=== PATIENT | female | born 1970 | race Caucasian/White ===

== ENCOUNTER 2016-08-28 17:39 | Emergency (ER) | payer OTHER ==
[~2016-08-28] VITALS: Ht 154.9 cm; Wt 68.0 kg
[~2016-08-28 17:39] MED LIST: DIAZ10 PO; FURO1TAB60 PO; LEVO.05 PO
[2016-08-28 17:40] VITALS: BP 135/77; PULSE 70; RESP 16; TEMP 98; O2SAT 97
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
[2016-08-28 19:40] LABS: AUTOMATED NEUTROPHIL # 5.4 TH/MM3 (1.8-7.7); BASOPHIL # 0.1 TH/MM3 (0-0.2); BASOPHIL % 1.1 % (0.0-2.0); EOSINOPHIL # 0.2 TH/MM3 (0-0.4); EOSINOPHIL % 2.2 % (0.0-4.0); HEMO FLAGS DIFF FINAL; LYMPH % 39.3 % (9.0-44.0); LYMPHOCYTE # 4.1 TH/MM3 (1.0-4.8); MEAN CELL VOLUME 93.2 FL (80.0-100.0); MEAN CORPUSCULAR HGB CONC 34.4 % (32.0-36.0); MONO % 5.4 % (0.0-8.0); PLATELET COUNT 378 TH/MM3 (150-450); RED CELL DISTRIBUTION WIDTH 12.2 % (11.6-17.2); WHITE BLOOD COUNT 10.4 TH/MM3 (4.0-11.0)
[2016-08-28 19:42] LABS: BLOOD, URINE NEG (NEG); COMMENT (UR) CULT NOT INDICATED; CULTURE IF INDICATED CULT NOT INDICATED; GLUCOSE,URINE NEG (NEG); KETONE, URINE NEG (NEG); NITRITE,URINE NEG (NEG); SQUAMOUS EPITHELIAL CELL URINE 3 /hpf (0-5); URINE COLOR COLORLESS (YELLW/STRAW)
[2016-08-28 19:51] LABS: APTT (PATIENT) 26.3 SEC (24.3-30.1); INTERNATIONAL NORMALIZED RATIO 0.9 RATIO; PROTHROMBIN TIME - PATIENT 10.2 SEC (9.8-11.6)
[2016-08-28 20:19] LABS: ALKALINE PHOSPHATASE 52 U/L (45-117); ALT (GPT) 34 U/L (10-53); ANION GAP 8 MEQ/L (5-15); AST (GOT) 21 U/L (15-37); BICARBONATE 29.4 MEQ/L (21.0-32.0); BLOOD UREA NITROGEN 16 MG/DL (7-18); CHLORIDE 101 MEQ/L (98-107); GLOMERULAR FILTRATION RATE 77 ML/MIN (>89); SODIUM (NA) 138 MEQ/L (136-145); TOTAL BILIRUBIN ADULT 0.4 MG/DL (0.2-1.0)
[2016-08-28 20:31] LABS: POTASSIUM 2.9 MEQ/L (3.5-5.1)
[2016-08-28] MEDS ORDERED: POTASSIUM CHLORIDE 20 MEQ CONTROLLED RELEASE TAB PO ONE (21:45)
[2016-08-28] MEDS ORDERED: SODIUM CHLOR 0.9% 1000 ML INJ 1,000 ML IV ONE (21:45)
[2016-08-28] MEDS ORDERED: ONDANSETRON HCL 4 MG/2 ML VIAL IV ONE (21:45)
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
[2016-08-28] MEDS ORDERED: KETOROLAC TROMETHAMINE 30 MG/ML (IVP) VIAL IV PUSH ONE (22:45)
[2016-08-28] MEDS ORDERED: NAPR1TAB34 PO (23:27)
[2016-08-28] MEDS ORDERED: CYCL5TAB PO (23:27)
[2016-08-28] MEDS ORDERED: IOHEXOL 350 MG/ML 10 ML VIAL (for RAD DIAG) IV ONE (23:28)
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
[2016-08-29] VITALS: BP 110/75; PULSE 61; RESP 14; O2SAT 99
[2016-10-30] MEDS ORDERED: FURO1TAB60 PO (15:25)
[2016-12-04] MEDS ORDERED: LEVO.05 PO (09:43)
[2016-12-04] MEDS ORDERED: DIAZ10 PO (09:43)
[2016-12-04] MEDS ORDERED: FURO1TAB60 PO (09:43)
[2016-12-04] MEDS ORDERED: POTA-163 PO ×2 (09:46)
== END 2016-08-29 00:20 | disposition home or self-care (01) ==
LOC: NEPE 17:39
DX: R10.31 Right lower quadrant pain (principal)
CPT/HCPCS: 74177; 80053; 81001; 85025; 85610; 85730; 96361; 96374; 96375; 99284; J1885; J2405; J7030; Q9967

== ENCOUNTER 2016-10-03 10:47 | Observation (INO) | payer OTHER ==
[~2016-10-03] VITALS: Ht 154.9 cm; Wt 71.0 kg
[~2016-10-03 10:47] MED LIST changes: +CYCL5TAB PO; +LACTATED RINGER'S 1000 ML INJ 1,000 ML IV ONE; +NAPR1TAB34 PO; +NEOSTIGMINE 3 MG/3 ML SYR IV ONE; +NORMOSOL R INJ 1,000 ML IV ONE; +ONDANSETRON HCL 4 MG/2 ML VIAL IV PUSH ONE; +PROPOFOL 200 MG/20 ML AMP IV ONE; +ePHEDrine/NS 25 MG/5 ML SYR IV ONE
[2016-10-03] MEDS ORDERED: IBUP400T20 PO (11:33)
[2016-10-03 11:36] VITALS: BP 99/69; PULSE 59; RESP 16; TEMP 98; O2SAT 97
[2016-10-03] MEDS ORDERED: ceFAZolin 2 GM PREMIX 50 ML ONE ×2 (11:48→17:36)
[2016-10-03 12:03] LABS: AUTOMATED NEUTROPHIL # 4.3 TH/MM3 (1.8-7.7); BASOPHIL # 0.1 TH/MM3 (0-0.2); BASOPHIL % 0.9 % (0.0-2.0); EOSINOPHIL # 0.2 TH/MM3 (0-0.4); EOSINOPHIL % 1.8 % (0.0-4.0); HEMATOCRIT 39.8 % (35.0-46.0); LYMPH % 42.1 % (9.0-44.0); LYMPHOCYTE # 3.7 TH/MM3 (1.0-4.8); MEAN CELL VOLUME 91.3 FL (80.0-100.0); MEAN CORPUSCULAR HEMOGLOBIN 32.8 PG (27.0-34.0); NEUT % 49.2 % (16.0-70.0); PLATELET COUNT 373 TH/MM3 (150-450); RED BLOOD COUNT 4.36 MIL/MM3 (4.00-5.30); RED CELL DISTRIBUTION WIDTH 11.6 % (11.6-17.2); WHITE BLOOD COUNT 8.8 TH/MM3 (4.0-11.0)
[2016-10-03 12:06] LABS: HEMO FLAGS AUTO DIFF
[2016-10-03 12:27] LABS: BICARBONATE 29.6 MEQ/L (21.0-32.0); POTASSIUM 3.1 MEQ/L (3.5-5.1)
[2016-10-03 12:46] LABS: SCAN/DIFF AUTO DIFF CONFIRMED
[2016-10-03] MEDS ORDERED: SCOPOLAMINE 1.5 MG PATCH ONE (12:55)
[2016-10-03] MEDS ORDERED: FAMOTIDINE 20 MG/2 ML VIAL ONE (12:55)
[2016-10-03] MEDS ORDERED: DEXAMETHASONE SOD PHOS 4 MG/ML VIAL ONE (14:38)
[2016-10-03] MEDS ORDERED: MIDAZOLAM HCL 2 MG/2 ML VIAL ONE ×2 (14:38→15:33)
[2016-10-03] MEDS ORDERED: HYDROmorphone HCL PF 2 MG/ML VIAL ONE ×2 (17:18→17:53)
[2016-10-03] MEDS ORDERED: ACETAMINOPHEN 1000 MG/100 ML VIAL IV ONE (17:18)
[2016-10-03] MEDS ORDERED: BUPIVACAINE/EPINEPHRINE 0.25% PF 30 ML VIAL INFIL ONE (17:57)
[2016-10-03] MEDS ORDERED: fentaNYL CITRATE 250 MCG/5 ML AMP ONE (19:14)
[2016-10-03] MEDS ORDERED: SUGAMMADEX SODIUM 200 MG/2 ML VIAL IV PUSH ONE ×2 (19:45)
[2016-10-03] MEDS ORDERED: DO NOT ADM ANY ANTICOAGULANT DRUGS PRN (19:54)
[2016-10-03 20:00] VITALS: BP 134/78; PULSE 69; RESP 20; TEMP 97.1; O2SAT 98
[2016-10-03] MEDS: SODIUM CHLOR 0.9% 1000 ML INJ 1,000 ML IV SCH (20:04)
--- NOTE | 2016-10-03 20:11 | HHI.PR ---
Immediate Post Op Note Procedure Date: Oct 03, 2016 Pre Op Diagnosis: (1) Ventral hernia Post Op Diagnosis: (1) Ventral hernia Surgeon: Tiago Gordon Snow Blower(s): staff Procedure: Robotic Assisted ventral hernia repair, 2cm X 5cm lysis of adhesions Findings: many adhesions in the pelvis 2 X 5cm ventral hernia Complications: none Specimen(s) removed: none Estimated blood loss: 20ml Anesthesia: General, Local Drains: None IVF Patient to: PACU Patient Condition: Good Tiago Gordon MD Oct 03, 2016 20:11
[2016-10-03] MEDS ORDERED: ACETAMINOPHEN 325 MG TAB PO PRN (20:15)
[2016-10-03] MEDS ORDERED: IBUPROFEN 400 MG TAB PO PRN (20:15)
[2016-10-03] MEDS ORDERED: ACETAMINOPHEN/HYDROcodone 325 MG/5 MG TAB PO PRN (20:15)
[2016-10-03] MEDS ORDERED: Post-op Orders (for Pharmacy) MISC XX ONE (20:15)
[2016-10-03] MEDS ORDERED: MORPHINE SULFATE 4 MG/ML INJ IV PRN (20:15)
[2016-10-03] MEDS ORDERED: SODIUM CHLORIDE 0.9% FLUSH 10 ML FLUSH IV FLUSH PRN (20:15)
[2016-10-03] MEDS ORDERED: NALOXONE HCL 0.4 MG/ML AMP IV PRN (20:15)
[2016-10-03] MEDS ORDERED: ONDANSETRON HCL 4 MG/2 ML VIAL IV PRN (20:15)
[2016-10-03] MEDS ORDERED: diphenhydrAMINE HCL 50 MG/ML VIAL IV PRN (20:15)
[2016-10-03] MEDS: SODIUM CHLORIDE 0.9% FLUSH 10 ML FLUSH IV FLUSH SCH (21:00)
[2016-10-03] MEDS: LORazepam 2 MG/ML VIAL IVP PRN (22:01)
[2016-10-03] MEDS: KETOROLAC TROMETHAMINE 30 MG/ML (IVP) VIAL IVP PRN (22:01)
[2016-10-04] VITALS: BP 103/61; PULSE 81; RESP 20; TEMP 96.5; O2SAT 98
[2016-10-04] MEDS: ACETAMINOPHEN/HYDROcodone 325 MG/7.5 MG TAB PO PRN ×4 (00:45→12:18)
[2016-10-04 04:00] VITALS: BP 113/43; PULSE 66; RESP 20; TEMP 97.2; O2SAT 96
[2016-10-04] MEDS: KETOROLAC TROMETHAMINE 30 MG/ML (IVP) VIAL IVP PRN ×2 (06:08→12:18)
[2016-10-04 08:00] VITALS: BP 99/57; PULSE 64; RESP 17; TEMP 97.3; O2SAT 95
[2016-10-04] MEDS: LORazepam 2 MG/ML VIAL IVP PRN (08:29)
[2016-10-04] MEDS: SODIUM CHLORIDE 0.9% FLUSH 10 ML FLUSH IV FLUSH SCH (08:30)
[2016-10-04] MEDS: SODIUM CHLOR 0.9% 1000 ML INJ 1,000 ML IV SCH (08:30)
[2016-10-04 12:00] VITALS: BP 101/59; PULSE 66; RESP 17; TEMP 97.7; O2SAT 95
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
[2016-10-05] MEDS ORDERED: INFLUENZA VIRUS VACCINE (QUADRIVALENT) 0.5 ML SYR IM ONE (10:00)
[2016-10-30] MEDS ORDERED: FURO1TAB60 PO (15:25)
[2016-12-04] MEDS ORDERED: FURO1TAB60 PO (09:43)
[2016-12-04] MEDS ORDERED: LEVO.05 PO (09:43)
[2016-12-04] MEDS ORDERED: DIAZ10 PO (09:43)
[2016-12-04] MEDS ORDERED: POTA-163 PO ×2 (09:46)
== END 2016-10-04 14:10 | disposition home or self-care (01) ==
LOC: HSDC 10:47 → N07A 20:50
PROVIDERS: ADMIT Surgery; ATTEND Surgery
DX: K43.2 Incisional hernia without obstruction or gangrene (principal); N73.6 Female pelvic peritoneal adhesions (postinfective); K21.9 Gastro-esophageal reflux disease without esophagitis; E03.9 Hypothyroidism, unspecified; Z87.891 Personal history of nicotine dependence
CPT/HCPCS: 00752; 49652; 80048; 85025; 94150; G0378; J0131; J0690; J1100; J1170; J1200; J1885; J2060; J2250; J2405; J2710; J3010; J7120